=== PATIENT | female | born 1975 | race Hispanic/Latino ===

== ENCOUNTER 2016-08-27 12:12 | Emergency (ER) | payer MEDICAID, OTHER ==
[2016-08-27 12:18] VITALS: PULSE 78; TEMP 98.2; BMI 29.5
--- NOTE | 2016-08-27 12:53 | C.PDOC ---
History Of Present Illness 41 y/o female pmhx hypothyroid and frequent vaginal candidiasis presents to the ED with complains of vaginal and anal irritation with vaginal discharge. Pt states she typically gets these symptoms pre/post menses but over the last couple days she developed a small pimple to right labia. Pt scratched the area increasing irritation. Pt admits to unprotected sex 1 week ago. She also reports dysuria. Pt denies abdominal pain, fever, chills, nausea, vomiting, diarrhea, abdominal pain or any other complaints. Time Seen by Provider: 08/27/16 12:20 Chief Complaint (Nursing): Female Genitourinary History Per: Patient History/Exam Limitations: no limitations Onset/Duration Of Symptoms: Days Current Symptoms Are (Timing): Still Present Severity: Moderate Associated Symptoms: Urinary Symptoms (dysuria). denies: Fever, Nausea, Vomiting, Diarrhea Recent travel outside of the [place]: No Abnormal Vaginal Bleeding: No Past Medical History Reviewed: Historical Data, Nursing Documentation, Vital Signs Vital Signs: Last Vital Signs Temp 98.2 F 08/27/16 12:18 Pulse 78 08/27/16 12:18 Resp 17 08/27/16 12:18 BP 132/80 08/27/16 12:18 Pulse Ox 98 08/27/16 12:57 - Medical History PMH: Anemia (RESOLVED), Asthma, Hypothyroidism (Lashae's) Surgical History: Cholecystectomy (1995), Tonsillectomy - [facility] Procedures APPLICATION OF SPLINT (04/03/02) CYSTOSCOPY NEC (11/26/14) NEBULIZER THERAPY (08/26/04) RETROGRADE PYELOGRAM (11/26/14) THERAPEUT DISTENT BLADD (11/26/14) THYROGLOSS DUCT EXCISION (02/13/99) TONSILLECTOMY (08/18/00) Family History: States: Unknown Family Hx - Social History Hx Tobacco Use: No Hx Alcohol Use: Yes Hx Substance Use: No - Immunization History Hx Tetanus Toxoid Vaccination: No Hx Influenza Vaccination: No Hx Pneumococcal Vaccination: No Review Of Systems Except As Marked, All Systems Reviewed And Found Negative. Constitutional: Negative for: Fever, Chills Gastrointestinal: Negative for: Nausea, Vomiting, Abdominal Pain, Diarrhea Genitourinary: Positive for: Dysuria, Vaginal Discharge, Other (vaginal and anal irritation) Physical Exam - Physical Exam Appears: Non-toxic, No Acute Distress Skin: Warm, Dry, No Rash Head: Atraumatic, Normacephalic Gastrointestinal/Abdominal: Normal Exam, Soft, No Tenderness Pelvic: Normal External Exam (except for erythematous patch on right labia; no vesicles, oozing, abrasions or lacerations), No Vaginal Bleeding, Vaginal Discharge (clumpy white), No Cervical Motion Tenderness Extremity: Bilateral: Atraumatic Neurological/Psych: Oriented x3 ED Course And Treatment O2 Sat by Pulse Oximetry: 98 (on room air) Pulse Ox Interpretation: Normal Medical Decision Making Medical Decision Making: Diagnosis likely candidiasis Prescribed antifungal and bacitracin. Disposition Counseled Patient/Family Regarding: Studies Performed, Diagnosis, Need For Followup - Disposition Disposition: HOME/ ROUTINE Disposition Time: 13:37 Condition: STABLE Additional Instructions: Use vaginal suppositories as indicated and follow up with your HOT END OPERATOR Prescriptions: Miconazole [Miconazole 7] 100 mg VG HS #7 sup Instructions: Vulvovaginal Candidiasis (ED) Forms: General Discharge Instructions - POA Present On Arrival: None - Clinical Impression Clinical Impression: Vaginal candidiasis - Scribe Statement The provider has reviewed the documentation as recorded by the Didier Carvajal Provider Attestation: All medical record entries made by the Didier were at my direction and personally dictated by me. I have reviewed the chart and agree that the record accurately reflects my personal performance of the history, physical exam, medical decision making, and the department course for this patient. I have also personally directed, reviewed, and agree with the discharge instructions and disposition.
[2016-08-27 12:55] LABS: RBC URINE < 1 /hpf (0-3); URINE BILIRUBIN NEGATIVE (NEGATIVE); URINE BLOOD NEGATIVE (NEGATIVE); URINE COLOR Yellow (YELLOW); URINE GLUCOSE (UA) NORMAL (Normal); URINE KETONE NEGATIVE (NEGATIVE); URINE LEUKOCYTE ESTERASE NEG Leu/uL (Negative); URINE PROTEIN NEGATIVE (NEGATIVE); WBC URINE 1 /hpf (0-5)
[2016-08-27 13:47] VITALS: BP 128/73; RESP 18; O2SAT 96
== END 2016-08-27 13:48 | disposition home or self-care (01) ==
LOC: C.ER 12:12
DX: B37.3 Candidiasis of vulva and vagina (principal)

== ENCOUNTER 2017-06-21 09:54 | Day surgery (SDC) | payer OTHER ==
[2017-06-21] MEDS ORDERED: Propofol 10 mg/ml Inj (20 ML) ONE (11:44)
[2017-06-21] MEDS ORDERED: Lactated Ringer's 1,000 ML IV ONE (11:45)
[2017-06-21 12:35] VITALS: TEMP 98.4
[2017-06-21 12:36] VITALS: O2SAT 100
[2017-06-21 12:53] VITALS: RESP 13
[2017-06-21 13:35] VITALS: BP 118/82; PULSE 75
== END 2017-06-21 13:33 | disposition home or self-care (01) ==
LOC: C.ENDO 09:54
PROVIDERS: ATTEND Internal Medicine
DX: Z12.11 Encounter for screening for malignant neoplasm of colon (principal); D64.9 Anemia, unspecified; R19.8 Other specified symptoms and signs involving the digestive system and abdomen; K60.2 Anal fissure, unspecified; K64.8 Other hemorrhoids; D12.5 Benign neoplasm of sigmoid colon; K29.40 Chronic atrophic gastritis without bleeding; E03.9 Hypothyroidism, unspecified; Z79.899 Other long term (current) drug therapy
CPT/HCPCS: 43239; 45380; 84703; 88305; J2704; J3010; J7120